=== PATIENT | male | born 1980 | race Caucasian/White ===

== ENCOUNTER 2025-11-14 10:35 | Emergency (ER) | payer OTHER ==
[~2025-11-14] VITALS: Ht 180.3 cm; Wt 83.9 kg
[2025-11-14 10:43] VITALS: BP 135/82; TEMP 98.3
[2025-11-14] MEDS ORDERED: ACYC-108 PO (11:23)
[2025-11-14 11:31] VITALS: O2SAT 98
[2025-11-14] MEDS ORDERED: METR-147 PO (11:42)
== END 2025-11-14 12:26 | disposition home or self-care (01) ==
LOC: ER 10:47
DX: B00.9 Herpesviral infection, unspecified (principal); A59.9 Trichomoniasis, unspecified; B19.20 Unspecified viral hepatitis C without hepatic coma